=== PATIENT | female | born 1975 | race Two or more races ===

== ENCOUNTER 2019-08-28 16:50 | Emergency (ER) | payer OTHER ==
[~2019-08-28] VITALS: Ht 162.6 cm; Wt 83.5 kg
[2019-08-28 17:01] VITALS: BP 119/78; Ht 162.6 cm; Wt 83.5 kg
== END 2019-08-28 17:45 | disposition home or self-care (01) ==
LOC: ED 16:50
DX: S20.212A Contusion of left front wall of thorax, initial encounter (principal); V49.88XA Car occupant (driver) (passenger) injured in other specified transport accidents, initial encounter; Y93.89 Activity, other specified; Y92.89 Other specified places as the place of occurrence of the external cause; Y99.8 Other external cause status